=== PATIENT | male | born 1950 | race Caucasian/White ===

== ENCOUNTER 2017-01-26 15:03 | Inpatient (IN) | payer OTHER, MEDICAID ==
--- NOTE | 2017-01-26 15:24 | EDPHY ---
H & P Time Seen by Provider: 01/26/17 15:10 HPI/ROS: CHIEF COMPLAINT: "I am anemic" HISTORY OF PRESENT ILLNESS: Patient is a 66-year-old male with multiple medical problems including GERD who presents to the emergency department with anemia. Patient was sent to the emergency department by his primary care physician, Dr. Tobar. Per the patient he had routine blood work 2 weeks ago. He was found to be significantly anemic and sent to the emergency department. The patient has been feeling fatigued for 1 month. He has mild shortness of breath. He has had increased bilateral pedal edema. He took 240 mg tablets of Lasix yesterday. He has intermittent "chest tightness" but none now. No fevers or chills. No abdominal pain. No nausea or vomiting. No black or discolored stools. REVIEW OF SYSTEMS: My complete review of systems is negative except as mentioned in the HPI. Past Medical/Surgical History: Includes osteoarthritis, scoliosis, hypothyroidism, chronic back pain, hypertension, GERD, coronary artery disease, pulmonary hypertension Social history: Patient does not smoke. He denies alcohol. Family history: Noncontributory Smoking Status: Former smoker Physical Exam: Vitals noted GENERAL: Well-appearing, in no acute distress, alert. HEENT: Eyes normal to inspection, normal pharynx, no signs of dehydration. NECK: No thyromegaly, no lymphadenopathy, supple. RESPIRATORY: Clear to auscultation bilaterally, no rales, rhonchi or wheezing. CVS: Regular rate and rhythm, no rubs, murmurs, or gallops. ABDOMEN: Soft, nontender, nondistended, no organomegaly. BACK: Normal to inspection, no CVA tenderness. SKIN: Pale, no rash, warm, dry bilateral pedal edema. This appear symmetric. Significant erythema both lower extremities. No warmth. NEURO/PSYCH: Alert and oriented, normal mood and affect, normal motor sensory exam. Constitutional: Initial Vital Signs Temperature (C) 36.7 C 01/26/17 15:05 Heart Rate 88 01/26/17 15:05 Respiratory Rate 18 01/26/17 15:05 Blood Pressure 114/81 H 01/26/17 15:05 O2 Sat (%) 93 01/26/17 15:05 O2 Delivery Mode Room Air Allergies/Adverse Reactions: wheat Allergy (Unknown, Verified 06/22/16 07:00) tolmetin sodium [From Tolectin] Allergy (Verified 11/17/13 15:37) Home Medications: Medication Instructions Recorded ALPRAZolam [Xanax 1 MG (*)] 1 mg PO BID PRN 02/18/16 Amphet Asp and D/Amphet [Adderall 10 mg PO DAILY@1200 02/18/16 10 MG (*)] Ascorbic Acid [Vitamin C 250 mg 250 mg PO DAILY 02/18/16 (*)] Aspirin [Aspirin 325 mg (*)] 325 mg PO DAILY18 02/18/16 Bupropion HCl [Wellbutrin Xl] 300 mg PO DAILY 02/18/16 Dextroamphetamine/Amphetamine 30 mg PO DAILY 02/18/16 [Adderall Xr 30 mg Capsule] Esomeprazole Mag Trihydrate 40 mg PO DAILY 02/18/16 [Nexium] Furosemide [Lasix 40 MG (*)] 40 mg PO DAILY PRN 02/18/16 Levothyroxine [Synthroid 112 mcg 112 mcg PO DAILY06 02/18/16 (*)] Liothyronine Sodium [Cytomel 5 mcg 5 mcg PO DAILY06 02/18/16 (*)] Methadone HCl [Methadone HCl 10 mg 20 mg PO DAILY06 02/18/16 (*)] Methadone HCl [Methadone HCl 10 mg 40 mg PO 1199,199902/18/16 (*)] Metoprolol Succinate Xr [Toprol Xl 25 mg PO DAILY18 02/18/16 25 mg (*)] [place]-3 Fatty Acids [Fish Oil 1000 1,000 mg PO DAILY 02/18/16 mg (*)] Potassium Cl [Klor-Con 10 meq (RX)] 10 meq PO DAILY PRN 02/18/16 Vitamin B Complex [B Complex] 1 each PO DAILY 02/18/16 oxyCODONE IR [Oxycodone Ir (*)] 30 mg PO Q4 PRN 02/18/16 Herbals/Supplements -Info Only 1 ea PO DAILY 05/09/16 FLUoxetine [Prozac 20 MG (*)] 40 mg PO DAILY 06/22/16 Pregabalin [Lyrica 50mg (*)] 50 mg PO BID 01/26/17 Medical Decision Making - Diagnostics EKG Interpretation: EKG shows normal sinus rhythm, normal rate, normal axis, prolonged QT interval. There are no ST or T-wave abnormalities. ED Course/Re-evaluation: In the emergency department I discussed possible etiologies with the patient. An IV was placed. Laboratory studies were obtained. I had reviewed the patient 's previous laboratory studies. I attempted to obtain stool Hemoccult. There is no stool in the vault. The cart was not sent. On 01/15/2017 the patient was noted to have a hematocrit of 25. Platelets were elevated. Patient had low iron studies. I discussed these results with the patient. 1625: I discussed case with Dr. Dial. She accepted the patient. GI was paged. Differential Diagnosis: My differential includes but is not limited to upper GI bleed, lower GI bleed, iron deficiency anemia, malignancy, leukemia, cellulitis, DVT, the bacteremia, sepsis - Data Points Laboratory Results: Laboratory Results 01/26/17 15:47 01/26/17 15:47 01/26/17 01/26/17 01/26/17 15:47 15:47 15:47 WBC 3.92 10^3/uL 10^3/uL (3.80-9.50) RBC 4.35 10^6/uL L 10^6/uL (4.40-6.38) Hgb 6.9 g/dL L g/dL (13.7-17.5) Hct 25.7 % L % (40.0-51.0) MCV 59.1 fL L fL (81.5-99.8) MCH 15.9 pg L pg (27.9-34.1) MCHC 26.8 g/dL L g/dL (32.4-36.7) RDW 18.8 % H % (11.5-15.2) Plt Count 491 10^3/uL H 10^3/uL (150-400) MPV 9.4 fL fL (8.7-11.7) Neut % (Auto) 62.9 % % (39.3-74.2) Lymph % (Auto) 24.0 % % (15.0-45.0) [place] % (Auto) 10.5 % % (4.5-13.0) Eos % (Auto) 1.5 % % (0.6-7.6) Baso % (Auto) 0.8 % % (0.3-1.7) Nucleat RBC Rel Count 0.0 % % (0.0-0.2) Absolute Neuts (auto) 2.47 10^3/uL 10^3/uL (1.70-6.50) Absolute Lymphs (auto) 0.94 10^3/uL L 10^3/uL (1.00-3.00) Absolute Monos (auto) 0.41 10^3/uL 10^3/uL (0.30-0.80) Absolute Eos (auto) 0.06 10^3/uL 10^3/uL (0.03-0.40) Absolute Basos (auto) 0.03 10^3/uL 10^3/uL (0.02-0.10) Absolute Nucleated RBC 0.00 10^3/uL 10^3/uL (0-0.01) Immature Gran % 0.3 % % (0.0-1.1) Immature Gran # 0.01 10^3/uL 10^3/uL (0.00-0.10) Platelet Estimate Pending Smear Review By Pending PT INR APTT Sodium 137 mEq/L mEq/L (134-144) Potassium 3.6 mEq/L mEq/L (3.5-5.2) Chloride 95 mEq/L L mEq/L (97-110) Carbon Dioxide 29 mEq/l mEq/l (22-31) Anion Gap 13 mEq/L mEq/L (8-16) BUN 20 mg/dL mg/dL (7-23) Creatinine 1.1 mg/dL mg/dL (0.7-1.3) Estimated GFR > 60 Glucose 90 mg/dL mg/dL (70-100) Calcium 9.0 mg/dL mg/dL (8.5-10.4) Troponin I Pending NT-Pro-B Natriuret Pep Pending Patient ABO/Rh Pending Antibody Screen Pending 01/26/17 15:35 WBC RBC Hgb Hct MCV MCH MCHC RDW Plt Count MPV Neut % (Auto) Lymph % (Auto) [place] % (Auto) Eos % (Auto) Baso % (Auto) Nucleat RBC Rel Count Absolute Neuts (auto) Absolute Lymphs (auto) Absolute Monos (auto) Absolute Eos (auto) Absolute Basos (auto) Absolute Nucleated RBC Immature Gran % Immature Gran # Platelet Estimate Smear Review By PT 13.6 SEC SEC (12.0-15.0) INR 1.05 (0.83-1.16) APTT 22.1 SEC L SEC (23.0-38.0) Sodium Potassium Chloride Carbon Dioxide Anion Gap BUN Creatinine Estimated GFR Glucose Calcium Troponin I NT-Pro-B Natriuret Pep Patient ABO/Rh Antibody Screen Departure - Departure Disposition: [facility] Inpatient Acute Clinical Impression: Possible GI bleed Anemia Qualifiers: Anemia type: iron deficiency Iron deficiency anemia type: unspecified iron deficiency Qualified Code(s): D50.9 - Iron deficiency anemia, unspecified Condition: Good Referrals: CHUN TOBAR [Primary Care Provider] - As per Instructions
[2017-01-26 15:55] LABS: INR 1.05 (0.83-1.16); PROTIME(PATIENT) 13.6 SEC (12.0-15.0)
[2017-01-26 15:56] LABS: APTT 22.1 SEC (23.0-38.0)
--- NOTE | 2017-01-26 15:57 | CPEKG ---
Heart Rate: 85 RR Interval: 706 P-R Interval: 136 QRSD Interval: 108 QT Interval: 448 QTC Interval: 533 P [place]: 57 QRS [place]: 46 T Wave [place]: -1 EKG Severity - ABNORMAL ECG - EKG Impression: SINUS RHYTHM EKG Impression: BORDERLINE INFERIOR Q WAVES EKG Impression: PROLONGED QT INTERVAL Electronically Signed By: Flex Melendez 26-Jan-2017 19:13:21
[2017-01-26 16:08] LABS: % IMMATURE GRANULYOCYTES 0.3 % (0.0-1.1); ABSOLUTE IMMATURE GRANULOCYTES 0.01 10^3/uL (0.00-0.10); ADD DIFF? NO; ADD MORPH? YES; ADD SCAN? NO; ATYPICAL LYMPHOCYTE FLAG 20 (0-99); FRAGMENT RBC FLAG 70 (0-99); HEMATOCRIT 25.7 % (40.0-51.0); LEFT SHIFT FLG 0 (0-99); LIPEMIA HEMOLYSIS FLAG 70 (0-99); MEAN CELL HEMOGLOBIN 15.9 pg (27.9-34.1); MEAN PLATELET VOLUME 9.4 fL (8.7-11.7); PLATELET CLUMPS FLAG 10 (0-99); PLATELET COUNT 491 10^3/uL (150-400); RED BLOOD CELL COUNT 4.35 10^6/uL (4.40-6.38); RED CELL DISTRIBUTION WIDTH 18.8 % (11.5-15.2)
[2017-01-26 16:12] LABS: HEMOGLOBIN 6.9 g/dL (13.7-17.5); MEAN CELL HEMOGLOBIN CONCENTR. 26.8 g/dL (32.4-36.7); MEAN CELL VOLUME 59.1 fL (81.5-99.8)
[2017-01-26 16:21] LABS: ANION GAP 13 mEq/L (8-16); CARBON DIOXIDE 29 mEq/l (22-31); CHLORIDE 95 mEq/L (97-110); CREATININE 1.1 mg/dL (0.7-1.3); GLOMERULAR FILTRATION RATE > 60; GLUCOSE 90 mg/dL (70-100); POTASSIUM 3.6 mEq/L (3.5-5.2); SODIUM 137 mEq/L (134-144)
[2017-01-26 16:34] LABS: GIANT PLATELETS PRESENT; HYPOCHROMIA 3+; LARGE PLATELETS PRESENT; MICROCYTES 2+; PLATELET ESTIMATE ADEQUATE (ADEQ); POLYCHROMASIA 1+; TROPONIN I < 0.012 ng/mL (0-0.034)
[2017-01-26] MEDS ORDERED: ONDANSETRON 4 MG/2 ML VIAL IVP PRN (17:20)
[2017-01-26] MEDS ORDERED: ACETAMINOPHEN 325 MG TAB PO PRN (17:20)
[2017-01-26] MEDS ORDERED: PROMETHAZINE HCL 25 MG/ML INJ IVP PRN (17:20)
[2017-01-26] MEDS ORDERED: GOLYTELY 4000 ML BTL PO ONE (17:22)
--- NOTE | 2017-01-26 17:53 | GHP ---
DATE OF ADMISSION: 01/26/2017 CHIEF COMPLAINT: Anemia HISTORY OF PRESENTING ILLNESS: This is a 66-year-old male with history of anemia who was referred t o the emergency department by his primary care provider for further workup. The patient tells me he has been anemic for approximately the past year. He has had a colonoscopy b ut it has been some time. His last colonoscopy, he tells me, he was found to have polyps. He denie s any melena or hematochezia. He denies any obvious blood loss. He takes ibuprofen occasionally, a bout once a week. He denies any abdominal pain. He does report about 10 pounds of weight loss over the past 3 months and has not been eating much. He denies any changes in his bowel habits. He den ies any fevers or chills. He does have shortness of breath. He denies any chest pain. PAST MEDICAL HISTORY: 1. Diastolic heart failure. 2. Hypothyroidism. 3. Hypertension. 4. Gastroesophageal reflux disease. 5. Pulmonary hypertension. 6. Obstructive sleep apnea. 7. Scoliosis. 8. Osteoarthritis. 9. Chronic opioid use. PAST SURGICAL HISTORY: Right total shoulder arthroplasty, and tonsil and adenoidectomy. HOME MEDICATIONS: Were reviewed, refer to [employer] for details. ALLERGIES: Were reviewed, refer to [employer]. SOCIAL HISTORY: The patient lives independently on [address] with a friend. He denies any to bacco use. He drinks alcohol occasionally. FAMILY HISTORY: Significant for what he thinks is colon cancer in his grandmother. REVIEW OF SYSTEMS: Comprehensive 10-point review of systems was done and is negative except for as mentioned in the HPI. PHYSICAL EXAM: VITAL SIGNS: Blood pressure 121/63, pulse of 80, respiratory rate 18, O2 sat 100% o n 2 L. Temperature afebrile. GENERAL: No acute distress. HEENT: Head: Normocephalic, atraumati c. Eyes are PERRLA. Sclerae anicteric. Mouth: Moist mucous membranes. Pale conjunctiva. CARDIO VASCULAR: S1, S2 with what sounds like a flow murmur. There is JVD. There is bilateral lower extr emity pitting edema. PULMONARY: Lungs are clear. No wheezes, rales, or rhonchi. Normal respirato ry effort. No dullness to percussion. ABDOMEN: Soft, nondistended. No guarding or rebound tender ness. Normoactive bowel sounds. EXTREMITIES: No clubbing or cyanosis. NEURO: Cranial nerves 2-1 2 grossly intact. No focal motor or sensory deficits. SKIN: There is mild bilateral erythema of b ilateral lower extremities. His complexion is very pale. DIAGNOSTICS: WBC is 3.9, hemoglobin 6.9, hematocrit 25.7, platelets 491, MCV 59.1. Coags were unre markable. Sodium 137, potassium 3.6, chloride 95, BUN 20, creatinine 1.1, glucose 90. BNP mildly e levated at 492. Troponins less than 0.012. EKG, which I visualized and personally interpreted, thomas ws sinus rhythm, rate 85 beats per minute, with no acute ischemic changes. ASSESSMENT AND PLAN: This is a 66-year-old male presenting with: 1. Symptomatic severe microcytic anemia of unclear etiology. Suspect GI blood loss and possible ma lignancy in the setting of weight loss and poor appetite. a. Plan: The patient will be admitted to the medical-surgical floor where I will order a unit of p acked red blood cells to be transfused. b. GI will be consulted for further inpatient workup. 2. Suspected acute on chronic diastolic heart failure with severe lower extremity swelling. a. Plan: We will obtain echocardiogram and consider diuresis. 3. History of chronic pain. a. Plan: Continue home pain medications. Once again, we will monitor his H and H. We will also send iron studies and consider hematology jena luation pending GI workup. /[id number]/MODL
[2017-01-26 18:17] LABS: % SATURATION 3 % (20-55); TOTAL IRON BINDING CAPACITY 444 ug/dL (260-490)
[2017-01-26] MEDS ORDERED: POTASSIUM CL 10 MEQ TAB PO PRN (18:39)
[2017-01-26] MEDS ORDERED: ALPRAZolam 1 MG TAB PO PRN (18:39)
[2017-01-26 18:42] LABS: FERRITIN - BCH 8.8 ng/mL (17.9-464.0)
[2017-01-26] MEDS: PREGABALIN 75 MG CAP PO SCH (21:18)
[2017-01-26] MEDS: FUROSEMIDE 40 MG TAB PO SCH (21:18)
[2017-01-27] MEDS ORDERED: LEVOTHYROXINE 112 MCG TAB PO SCH (06:00)
[2017-01-27] MEDS ORDERED: LIOTHYRONINE SODIUM 5 MCG TAB PO SCH (06:00)
[2017-01-27 07:22] LABS: % IMMATURE GRANULYOCYTES 0.3 % (0.0-1.1); ABSOLUTE IMMATURE GRANULOCYTES 0.01 10^3/uL (0.00-0.10); ADD DIFF? NO; ADD MORPH? YES; ADD SCAN? NO; ATYPICAL LYMPHOCYTE FLAG 10 (0-99); FRAGMENT RBC FLAG 80 (0-99); HEMATOCRIT 25.3 % (40.0-51.0); LEFT SHIFT FLG 0 (0-99); LIPEMIA HEMOLYSIS FLAG 70 (0-99); MEAN CELL HEMOGLOBIN 17.2 pg (27.9-34.1); MEAN PLATELET VOLUME 9.6 fL (8.7-11.7); PLATELET CLUMPS FLAG 0 (0-99); PLATELET COUNT 389 10^3/uL (150-400); RED BLOOD CELL COUNT 4.06 10^6/uL (4.40-6.38)
[2017-01-27 07:29] LABS: ANION GAP 8 mEq/L (8-16); CALCIUM 8.5 mg/dL (8.5-10.4); CARBON DIOXIDE 31 mEq/l (22-31); CHLORIDE 97 mEq/L (97-110); CREATININE 0.9 mg/dL (0.7-1.3); GLOMERULAR FILTRATION RATE > 60; GLUCOSE 76 mg/dL (70-100); POTASSIUM 3.7 mEq/L (3.5-5.2); SODIUM 136 mEq/L (134-144)
[2017-01-27 07:32] LABS: MEAN CELL HEMOGLOBIN CONCENTR. 27.7 g/dL (32.4-36.7); MEAN CELL VOLUME 62.3 fL (81.5-99.8); RED CELL DISTRIBUTION WIDTH 21.4 % (11.5-15.2)
[2017-01-27 08:09] LABS: HYPOCHROMIA 3+; LARGE PLATELETS PRESENT; MICROCYTES 2+; PLATELET ESTIMATE ADEQUATE (ADEQ); POLYCHROMASIA 1+
[2017-01-27] MEDS ORDERED: METHADONE HCL 10 MG TAB PO SCH (09:00)
[2017-01-27] MEDS ORDERED: ASCORBIC ACID 500 MG TAB PO SCH (09:00)
[2017-01-27] MEDS ORDERED: FLUoxetine 20 MG CAP PO SCH (09:00)
[2017-01-27] MEDS ORDERED: buPROPion XL 150 MG TAB PO SCH (09:00)
[2017-01-27] MEDS ORDERED: Dextroamphetamine/Amphetamine [Adderall Xr 30 Mg Capsule] PO SCH (09:00)
[2017-01-27] MEDS ORDERED: Herbals/Supplements -Info Only PO SCH (09:00)
[2017-01-27] MEDS: FUROSEMIDE 40 MG TAB PO SCH (09:24)
[2017-01-27] MEDS: PREGABALIN 75 MG CAP PO SCH (09:24)
[2017-01-27] MEDS ORDERED: ADDERALL 20 MG TAB PO SCH (12:00)
[2017-01-27] MEDS: METHADONE HCL 10 MG TAB PO SCH ×2 (12:07→15:49)
--- NOTE | 2017-01-27 12:17 | ECHO ---
[id number] + + [phone] : : [place] [address] : : [phone] + + Adult Echocardiographic Report + ------+ :Name: KOURTNEY GUERRA TStudy Date: 01/27/2017 07:42 AM : : Hospital Admission Number: [id number] Locatio n: 379: :: 1950 Gender: Male Height: 63 in : :Age: 66 yrs Race: WH Weight: 145 lb : :Reason For Study: Heart failure : : BSA: 1.7 meters 2 : + ------+ MMode/2D Measurements \T\ Calculations IVSd: 0.67 cm LVIDd: 5.5 cm FS: 38.8 % MV Diam: 3.2 cm LVPWd: 0.79 cm LVIDs: 3.4 cm EDV(Teich): 147.6 ml ESV(Teich): 46.3 ml EF(Teich): 68.6 % Ao root diam: LVOT diam: 2.4 cmLVLd ap4: 9.1 cm SV(MOD-sp4): 3.5 cm LVOT area: EDV(MOD-sp4): 87.0 ml LA dimension: 4.5 cm2 112.0 ml 4.1 cm LVLs ap4: 6.7 cm ESV(MOD-sp4): 25.0 ml EF(MOD-sp4): 77.7 % Normal Measurement Values: + + :LVIDd (3.5-5.7cm) IVSd (0.6-1.1cm) LVPWd (0.6-1.1cm) Aortic Root (2.0-3.7cm)Left Atrium (1.5-4.0cm): :LV Vol(d) (76-115ml) LV Vol(s) (29-48ml) Ejec Fraction (50-65%)PV Lane (0.6- 1.2m/s) TV Lane (0.4-1.0m/s) : :MV E Lane (0.8-1.0m/s)MV A Lane (0.3-1.0m/s)LVOT Lane (0.7-1.2m/s) Asc Ao Lane ( 0.9-1.8m/s) : + + Doppler Measurements \T\ Calculations MV E max lane: MV area (1 diam): Ao mean PG: AI max lane: 83.9 cm/sec 7.8 cm2 5.7 mmHg 483.2 cm/sec MV A max lane: MV Flow area Ao V2 mean: AI max P.4 mmHg 84.4 cm/sec 111.5 cm/sec AI dec slope: MV E/A: 0.99 (1diam): 7.8 cm2 Ao V2 VTI: 38.5 cm 309.5 cm/sec2 RICCO(I,D): 3.1 cm2 AI P1/2t: 457.3 msec LV V1 mean PG: SV(LVOT): 118.[address]: 2.6 mmHg 240.3 cm/sec LV V1 mean: TR max P.5 cm/sec 23.1 mmHg LV V1 VTI: 26.2 cm RAP systole: 5.0 mmHg RVSP(TR): 28.1 mmHg Left Ventricle The left ventricle is borderline dilated. There is normal left ventricular wall thickness. Left ventricular systolic function is normal. Ejection Fraction = 65-70%. No regional wall motion abnormalities noted. Right Ventricle The right ventricle is normal in size and function. Atria The left atrium is moderately dilated. Right atrial size is normal. The interatrial septum is intact with no evidence for an atrial septal defect. Mitral Valve The mitral valve is normal in structure and function. There is no evidence of mitral valve prolapse. There is no mitral valve stenosis. There is mild mitral regurgitation. Tricuspid Valve Normal tricuspid valve. There is mild tricuspid regurgitation. Aortic Valve Question bicuspid AV with raphe. There is no aortic stenosis. Moderate aortic regurgitation. Pulmonic Valve The pulmonic valve is normal in structure and function. There is no pulmonic valvular regurgitation. Great Vessels The aortic root is normal size. Pericardium/Pleural There is no pericardial effusion. Conclusion A complete two-dimensional transthoracic echocardiogram was performed (2D, M-mode, Doppler and color flow Doppler). Left ventricular systolic function is normal. Ejection Fraction = 65-70%. The left ventricle is borderline dilated. The left atrium is moderately dilated. There is mild mitral regurgitation. There is mild tricuspid regurgitation. Question bicuspid AV with raphe. Moderate aortic regurgitation. Final Reading Physician: Isatu Silva signed on 01/27/2017 12:15 PM Ordering Physician: Lex Feliz Performed By: Edna Kathleen RDCS
[2017-01-27 12:19] VITALS: RESP 16
[2017-01-27] MEDS ORDERED: fentaNYL 100 MCG/2 ML INJ ONE (13:25)
[2017-01-27] MEDS ORDERED: PROPOFOL/EMULSION 500 MG/50 ML BOTTLE IV ONE (13:26)
--- NOTE | 2017-01-27 14:55 | GCON ---
DATE OF CONSULTATION: 01/27/2017 REQUESTING PHYSICIAN: I was kindly requested to see the patient by Dr. Lex Feliz. CHIEF COMPLAINT: Anemia. HISTORY OF PRESENT ILLNESS: The patient is a 66-year-old white male who has had the above for about 1 year. On admission, his hemoglobin was 6.8. He complains of heartburn. He denies dysphagia. He has had trouble with heartburn dating back at least 2 years. For a period, he was vomiting blood for several months. The above was despite Nexium. Presently, he is not using a proton pump inhibitor. He does use aspirin or ibuprofen as needed. His last upper endoscopy was in 2008, where some subtle changes of esophagitis were seen and a small hiatal hernia. Colonoscopy then showed a 6 mm tubular adenoma in the colon. Normal terminal ilium. PAST MEDICAL HISTORY: 1. As above. 2. Diastolic heart failure. 3. Hypothyroidism. 4. Hypertension. 5. Pulmonary hypertension. 6. Obstructive sleep apnea. 7. Scoliosis. 8. Osteoarthritis. 9. Chronic opioid use. Otherwise, noncontributory. ALLERGIES: Include Tolmetin. MEDICATIONS: Outpatient medications include potassium chloride. Inpatient medications include Lyrica, potassium chloride, Xanax, Adderall, vitamin C, Wellbutrin, Prozac, Lasix, methadone, Cytomel, Synthroid, and Zofran as needed. SOCIAL HISTORY: He denies cigarette use. FAMILY HISTORY: Negative for similar anemia. REVIEW OF SYSTEMS: Positive pertinent review of systems as per my HPI. Otherwise, a complete review of systems is negative. PHYSICAL EXAM: CONSTITUTIONAL: A chronically ill-appearing gentleman. SKIN: Warm, dry. EYES: Pupils equal, round, reactive to light and accommodation. ENMT: oropharynx without masses, moist mucosa. CARDIOVASCULAR: Normal S2, normal PMI. RESPIRATORY: Clear to auscultation and percussion anteriorly. GASTROINTESTINAL: Abdomen is soft, nontender. NEUROLOGIC: Grossly nonfocal, with cranial nerves grossly intact. PSYCHIATRIC: Orientation, insight appropriate. MUSCULOSKELETAL: Strength is grossly normal throughout, normal station. LABORATORIES: Include the above. After a unit of blood, his hemoglobin is 7. Normal coags. Iron deficient. Normal TSH. Normal electrolytes. ASSESSMENT: Anemia. This could be due to significant reflux esophagitis, esophageal ulcer, or even esophageal cancer is possible. A colon source such as colon cancer is possible. PLAN: 1. Urgent upper endoscopy, colonoscopy. Certainly, with his heart failure, thyroid disorder, hypertension, pulmonary hypertension, sleep apnea, opioid use , etc., he is at increased risk for this procedure. However, suspect that benefits outweigh the risks and suspect he will do well. 2. Further management depending on the above. Thank you for allowing me to help in the care of this patient. /[id number]/MODL MTDD
--- NOTE | 2017-01-27 15:05 | GPN ---
DATE OF PROCEDURE: 01/27/2017 PROCEDURES: Upper endoscopy with biopsy, colonoscopy. INDICATIONS AND PRE-PROCEDURE DIAGNOSIS: Anemia. POSTPROCEDURE DIAGNOSIS: A. Upper endoscopy. 1. Moderately severe reflux esophagitis (see below). 2. Normal stomach, duodenum. No active bleeding seen. B. Colonoscopy. Normal, normal terminal ilium. PREMEDICATION: As per Anesthesia. COMPLICATIONS: None. FINDINGS: After informed consent was obtained, the patient was placed in the left lateral decubitus position. Video upper endoscope was placed under direct visualization and advanced. The distal esophagus had moderately severe exudative esophagitis. No active bleeding seen. No stricture, mass, deep ulceration seen. Stomach was normal. Duodenum normal. The patient's gurney was turned around. Video pediatric colonoscope was placed in the rectum and advanced to the terminal ileum. Upon slow withdrawal, the above findings were noted. IMPRESSION: I suspect his anemia is due to his moderately severe reflux esophagitis. PLAN: 1. We will begin a proton pump inhibitor twice a day. 2. We will let him eat. 3. To be safe, we will change his potassium chloride to 10 mEq twice a day as needed in liquid form. 4. Biopsies pending. Biopsies were also sent for HSV, CMV, etc., but suspect will be negative. I will sign off. I will follow up on his biopsy results, but suspect will show just reflux esophagitis only. Even if any Mcgovern is present, with his poor health status, would not recommend future surveillance upper endoscopies routinely. Finally, upon discharge, would recommend a generic PPI twice a day custodial, as well as iron replacement therapy x 8 weeks. F/U PCP. Thank you for allowing me to help in the care of this patient. Please let me know if we can be of further help in the future. /[id number]/MODL MTDD
[2017-01-27] MEDS ORDERED: SODIUM FERRIC GLUCONAT/SUCROSE 125 MG in NS 100 ML IV SCH (16:30)
[2017-01-27 16:51] VITALS: BP 130/80; PULSE 86; TEMP 98.1; O2SAT 98
--- NOTE | 2017-01-27 17:40 | PDDCSUM ---
Discharge Summary Discharge Summary: DISCHARGE DIAGNOSES: -IRON DEFICIENCY ANEMIA -SEVERE EROSIVE ESOPHAGITIS CONSULTANTS: Dr. Nestor Burk PROCEDURES: Esophagogastroduodenoscopy showing severe erosive esophagitis with evidence of bleeding recently Colonoscopy with no specific abnormalities Transfusion of 1 unit of packed red blood cells HOSPITAL COURSE SUMMARY: This patient came in with significant symptoms suggesting anemia on blood testing was found to have hemoglobin of 6.7. There was evidence of iron deficiency which was profound and he had heme-positive stool. Endoscopies showed severe erosive esophagitis but no other lesion that would cause bleeding. It is felt that this was likely cause of his iron deficiency anemia. The patient was given 1 unit of red blood cells which she tolerated well. He was given iron supplementation and proton pump inhibitor therapy and IV fluids. At this time he is eating well up walking in the hallways. There been no cardiac or other complications here. PENDING TEST RESULTS: Small bowel biopsies pending MEDICATION CHANGES: Addition of a Nexium 40 mg twice daily and iron supplements FOLLOW-UP PLAN: With Dr. shipman in 1-2 weeks Follow-up CBC and iron studies recommended Greater than 35 minutes bedside and care coordination time today
[2017-01-27] MEDS ORDERED: PANTOPRAZOLE SODIUM 40 MG TAB PO SCH (21:00)
== END 2017-01-27 18:36 | disposition home or self-care (01) | DRG 392 ==
LOC: OBSVTOIN 17:20 → F3E 17:24
PROVIDERS: ADMIT Internal Medicine; ATTEND Internal Medicine
DX: K21.0 Gastro-esophageal reflux disease with esophagitis (principal); K22.8 Other specified diseases of esophagus; D50.0 Iron deficiency anemia secondary to blood loss (chronic); I11.0 Hypertensive heart disease with heart failure; I50.32 Chronic diastolic (congestive) heart failure; E03.9 Hypothyroidism, unspecified; G47.33 Obstructive sleep apnea (adult) (pediatric); I27.2 Other secondary pulmonary hypertension; M19.91 Primary osteoarthritis, unspecified site; M41.9 Scoliosis, unspecified; Z79.891 Long term (current) use of opiate analgesic; Z96.611 Presence of right artificial shoulder joint
CPT/HCPCS: J2704; J2916; J3010; P9016

== ENCOUNTER 2018-10-15 15:15 | Observation (INO) | payer OTHER, MEDICAID ==
--- NOTE | 2018-10-15 15:54 | EDPHY ---
H & P Stated Complaint: wke up covered in blood from mouth /has had ruptured hiatal hernia in past Time Seen by Provider: 10/15/18 15:54 - Personal History Current Tetanus Diphtheria and Acellular Pertussis (TDAP): Yes - Medical/Surgical History Hx Asthma: No Hx Chronic Respiratory Disease: No Hx Diabetes: No Hx Cardiac Disease: No Hx Renal Disease: No Hx Cirrhosis: No Hx Alcoholism: No Hx HIV/AIDS: No Hx Splenectomy or Spleen Trauma: No Other PMH: arthritis, depression, scoliosis, pulm hypertension, non- flow limiting mild CAD, Hx hep c (- last 5-6 years after interferon), reflux, hiatal hernia, sleep apnea, COPD, SHOULDER REPLACEMENT (MAY 2016) - Social History Smoking Status: Former smoker Constitutional: Initial Vital Signs Temperature (C) 36.5 C 10/15/18 15:20 Heart Rate 92 10/15/18 15:20 Respiratory Rate 18 10/15/18 15:20 Blood Pressure 152/89 H 10/15/18 15:20 O2 Sat (%) 90 L 10/15/18 15:20 O2 Delivery Mode Room Air Allergies/Adverse Reactions: tolmetin sodium [From Tolectin] Allergy (Verified 10/15/18 15:18) Home Medications: Medication Instructions Recorded ALPRAZolam [Xanax 1 MG (*)] 1 mg PO TID PRN 02/18/16 Ascorbic Acid [Vitamin C 250 mg 250 mg PO DAILY 02/18/16 (*)] Bupropion HCl [Wellbutrin Xl] 300 mg PO DAILY 02/18/16 Dextroamphetamine/Amphetamine 30 mg PO DAILY 02/18/16 [Adderall Xr 30 mg Capsule] Levothyroxine [Synthroid 112 mcg 112 mcg PO DAILY06 02/18/16 (*)] Liothyronine Sodium [Cytomel 5 mcg 5 mcg PO DAILY06 02/18/16 (*)] Methadone HCl [Methadone HCl 10 mg 20 mg PO DAILY 02/18/16 (*)] Methadone HCl [Methadone HCl 10 mg 40 mg PO DAILY@,16 02/18/16 (*)] Potassium Cl [Klor-Con 10 meq (RX)] 10 meq PO BID PRN 02/18/16 oxyCODONE IR [Oxycodone Ir (*)] 30 mg PO Q4 PRN 02/18/16 Herbals/Supplements -Info Only 1 ea PO DAILY 05/09/16 FLUoxetine [Prozac 20 MG (*)] 40 mg PO DAILY 06/22/16 Amphet Asp and D/Amphet [Adderall 20 mg PO DAILY@12 01/26/17 20 mg (*)] Furosemide [Lasix 80 MG (*)] 80 mg PO BID 01/26/17 Ferrous Gluconate 324 mg PO DAILY #60 tablet 01/27/17 Omeprazole 20 mg PO BID #60 capsule. 01/27/17 Medical Decision Making ED Course/Re-evaluation: CHIEF COMPLAINT: "Woke up covered in blood" HISTORY OF PRESENT ILLNESS: The patient is a 68 y/o male with a history of an upper GI bleed requiring transfusion arriving with his friend for evaluation of bleeding from his nose and mouth upon waking this morning. He describes bright red blood all over his face and body that he believes is coming from his stomach and occurred while he was asleep. He reports he is taking more aspirin than normal up to 2-3 tablets per day due to musculoskeletal soreness. He denies ibuprofen use. He is taking omeprazole daily and recently increased this dose to twice daily after a brief reduction in dose led to worsening of his GERD symptoms. He denies abdominal pain, dark stools, fever, vomiting, or other complaints. REVIEW OF SYSTEMS: A comprehensive 10 system review of systems is otherwise negative aside from elements mentioned in the history of present illness and medical decision making. PHYSICAL EXAM: HR, BP, O2 Sat, RR. Temp noted General Appearance: Alert, well hydrated, appropriate, and non-toxic appearing. Pale. Head: Atraumatic without scalp tenderness or obvious injury Eyes: Pupils equal, round, reactive to light and accommodation, EOMI, no trauma , no injection. Nose: Atraumatic, no rhinorrhea, clear. Throat: Mucus membranes moist. Neck: Supple, nontender, no lymphadenopathy. Respiratory: No retractions, no distress, no wheezes, and no accessory muscle use. Lungs are clear to auscultation bilaterally. Cardiovascular: Regular rate and rhythm, no murmurs, rubs, or gallops. Good capillary refill all extremities. Gastrointestinal: Abdomen is soft, nontender, non-distended, no masses, no rebound, no guarding, no peritoneal signs. Musculoskeletal: Normal active ROM of all extremities, atraumatic. Neurological: Alert, appropriate, and interactive. The patient has non-focal cranial nerves, motor, sensory, and cerebellar exam. Skin: No rashes, good turgor, no nodules on palpation. Past medical history: Hiatal hernia, upper GI bleed requiring transfusion, diastolic heart failure, hypothyroidism, hypertension, GERD, pulmonary hypertension, sleep apnea, scoliosis, osteoarthritis, chronic opioid use Past surgical history: Right shoulder arthroplasty, tonsillectomy, adenoidectomy Family history: Noncontributory Social history: Lives independently with a friend. Denies tobacco use. Prior medical records reviewed including admission 01/26/17 for anemia. DIFFERENTIAL DIAGNOSIS: The differential diagnosis for the patient's upper GI bleeding included but was not limited to ulcer disease, gastritis, Rowena- Shafer tear, and esophageal varices. MEDICAL DECISION MAKING: This is a 68 y/o male with a history of upper GI bleed who presents with bright red blood coming from his nose and mouth upon waking this morning. He is somewhat pale, but otherwise has a normal exam. Suspect another upper GI bleed. Plan for IV, labs including type & cross, and treatment with 2gm IV TXA, 80mg IV Protonix. Hct 39. Will hold transfusion for now. 1640: Consulted with REI Miles. He will scope during admission. Spoke with hospitalist service. Dr. Hunter accepts admission. - Data Points Laboratory Results: Laboratory Results 10/15/18 16:24 10/15/18 10/15/18 10/15/18 16:30 16:24 16:24 WBC RBC Hgb POC Hgb 13.9 gm/dL gm/dL (13.7-17.5) Hct POC Hct 41 % % (40-51) MCV MCH MCHC RDW Plt Count MPV Neut % (Auto) Lymph % (Auto) [place] % (Auto) Eos % (Auto) Baso % (Auto) Nucleat RBC Rel Count Absolute Neuts (auto) Absolute Lymphs (auto) Absolute Monos (auto) Absolute Eos (auto) Absolute Basos (auto) Absolute Nucleated RBC Immature Gran % Immature Gran # PT INR APTT POC Sodium 136 mEq/L mEq/L (135-145) Sodium Pending POC Potassium 3.8 mEq/L mEq/L (3.3-5.0) Potassium Pending POC Chloride 95 mEq/L L mEq/L (97-110) Chloride Pending Carbon Dioxide Pending Anion Gap Pending POC BUN 26 mg/dL H mg/dL (7-23) BUN Pending Creatinine Pending POC Creatinine 1.0 mg/dL mg/dL (0.7-1.3) Estimated GFR Pending Glucose Pending POC Glucose 106 mg/dL H mg/dL (70-100) Calcium Pending Total Bilirubin Pending Conjugated Bilirubin Pending Unconjugated Bilirubin Pending AST Pending ALT Pending Alkaline Phosphatase Pending Total Protein Pending Albumin Pending Lipase Pending Patient ABO/Rh Pending Antibody Screen Pending Crossmatch IS Only See Detail 10/15/18 10/15/18 16:24 16:24 WBC 5.47 10^3/uL 10^3/uL (3.80-9.50) RBC 4.77 10^6/uL 10^6/uL (4.40-6.38) Hgb 12.4 g/dL L g/dL (13.7-17.5) POC Hgb Hct 39.6 % L % (40.0-51.0) POC Hct MCV 83.0 fL fL (81.5-99.8) MCH 26.0 pg L pg (27.9-34.1) MCHC 31.3 g/dL L g/dL (32.4-36.7) RDW 14.8 % % (11.5-15.2) Plt Count 267 10^3/uL 10^3/uL (150-400) MPV 9.2 fL fL (8.7-11.7) Neut % (Auto) 52.5 % % (39.3-74.2) Lymph % (Auto) 28.3 % % (15.0-45.0) [place]illi[place] % (Auto) 9.7 % % (4.5-13.0) Eos % (Auto) 8.0 % H % (0.6-7.6) Baso % (Auto) 1.1 % % (0.3-1.7) Nucleat RBC Rel Count 0.0 % % (0.0-0.2) Absolute Neuts (auto) 2.87 10^3/uL 10^3/uL (1.70-6.50) Absolute Lymphs (auto) 1.55 10^3/uL 10^3/uL (1.00-3.00) Absolute Monos (auto) 0.53 10^3/uL 10^3/uL (0.30-0.80) Absolute Eos (auto) 0.44 10^3/uL H 10^3/uL (0.03-0.40) Absolute Basos (auto) 0.06 10^3/uL 10^3/uL (0.02-0.10) Absolute Nucleated RBC 0.00 10^3/uL 10^3/uL (0-0.01) Immature Gran % 0.4 % % (0.0-1.1) Immature Gran # 0.02 10^3/uL 10^3/uL (0.00-0.10) PT 13.5 SEC SEC (12.0-15.0) INR 1.01 (0.83-1.16) APTT 30.2 SEC SEC (23.0-38.0) POC Sodium Sodium POC Potassium Potassium POC Chloride Chloride Carbon Dioxide Anion Gap POC BUN BUN Creatinine POC Creatinine Estimated GFR Glucose POC Glucose Calcium Total Bilirubin Conjugated Bilirubin Unconjugated Bilirubin AST ALT Alkaline Phosphatase Total Protein Albumin Lipase Patient ABO/Rh Antibody Screen Crossmatch IS Only Medications Given: Discontinued Medications Sodium Chloride (Ns) 1,000 mls @ 0 mls/hr IV EDNOW ONE; Wide Open PRN Reason: Protocol Stop: 10/15/18 16:00 Last Admin: 10/15/18 16:24 Dose: 1,000 mls Tranexamic Acid 1,000 mg/ (Sodium Chloride) 110 mls @ 660 mls/hr IV ONCE ONE Stop: 10/15/18 16:10 Last Admin: 10/15/18 16:27 Dose: 110 mls Pantoprazole Sodium (Protonix) 80 mg IVP EDNOW ONE Stop: 10/15/18 16:00 Last Admin: 10/15/18 16:24 Dose: 80 mg Point of Care Test Results: Chemistry 10/15/18 16:30 POC Sodium 136 mEq/L mEq/L (135-145) POC Potassium 3.8 mEq/L mEq/L (3.3-5.0) POC Chloride 95 mEq/L L mEq/L (97-110) POC BUN 26 mg/dL H mg/dL (7-23) POC Creatinine 1.0 mg/dL mg/dL (0.7-1.3) POC Glucose 106 mg/dL H mg/dL (70-100) ISTAT H&H 10/15/18 16:30 POC Hgb 13.9 gm/dL gm/dL (13.7-17.5) POC Hct 41 % % (40-51) Departure - Departure Disposition: [facility] Inpatient Acute Clinical Impression: Upper GI bleed Condition: Fair Referrals: CHUN JOSHI [Primary Care Provider] - As per Instructions Report Scribed for: Flex Melendez Report Scribed by: Sahara Hart Date of Report: 10/15/18 Time of Report: 16:05
[2018-10-15] MEDS ORDERED: PANTOPRAZOLE SODIUM 40 MG VIAL IVP ONE (15:59)
[2018-10-15] MEDS ORDERED: NS 1,000 ML IV ONE (15:59)
[2018-10-15] MEDS ORDERED: TRANEXAMIC ACID 1,000 MG in NS 500 ML IV ONE (16:01)
[2018-10-15] MEDS ORDERED: TRANEXAMIC ACID 1,000 MG in NS 100 ML IV ONE (16:01)
[2018-10-15 16:33] LABS: PLATELET COUNT 267 10^3/uL (150-400)
[2018-10-15 16:41] LABS: INR 1.01 (0.83-1.16); PROTIME(PATIENT) 13.5 SEC (12.0-15.0)
[2018-10-15] MEDS ORDERED: ACETAMINOPHEN 325 MG TAB PO PRN (16:59)
[2018-10-15] MEDS ORDERED: ONDANSETRON DISINTEGRATING 4 MG TAB PO PRN (16:59)
[2018-10-15] MEDS ORDERED: ONDANSETRON 4 MG/2 ML VIAL IVP PRN (16:59)
[2018-10-15] MEDS ORDERED: HYDROmorphONE/DILAUDID 1 MG/ML INJ IVP PRN (16:59)
[2018-10-15] MEDS ORDERED: NS 1,000 ML IV SCH (17:00)
--- NOTE | 2018-10-15 18:02 | PDGENHP ---
History and Physical - Chief Complaint Suspected upper GI bleed - History of Present Illness 68 y/o with history of hiatal hernia and UGIB requiring transfusions in the past presents today c/o waking up and his face being covered in blood which he suspects is coming from his stomach/esophagus region. He admits to taking more ASA (325 mg x 3 tablets) than usual for his muscle aches. No other additional OTC NSAIDs. C/o epigastric pain and tenderness. One month prior, pt had a dilation procedure for his esophageal stricture to allow him to swallow with ease as he was having difficulty swallowing solid foods. Since then, he c/o of mild difficulty swallowing. He endorses "darker" stools but not black tarry. Denies hematemesis, hematuria, hemoptysis. Denies N/V, diarrhea, dizziness. Past Medical/Surgical History 1. Hiatal Hernia 2. Diastolic heart failure 3. GERD 4. Hypothyroidism 5. HTN 6. Pulmonary HTN 7. ILANA (wears oxygen HS, but not CPAP) 8. Scoliosis 9. OA 10. Chronic Opioid Use 11. Depression 12. Hepatitis C 13. Adenoidectomy 14. Tonsillectomy 15. Right Shoulder Arthroplasty Vital Signs 130/82 84 16 Respirations 94% RA 36.5c History Information - Allergies/Home Medication List Allergies/Adverse Reactions: gluten Allergy (Verified 10/15/18 17:44) Other-Enter Comments tolmetin sodium [From Tolectin] Allergy (Verified 10/15/18 17:44) Other-Enter Comments Home Medications: Ascorbic Acid [Vitamin C 250 mg (*)] 250 mg PO DAILY 02/18/16 [Last Taken ] Dextroamphetamine/Amphetamine [Adderall Xr 30 mg Capsule] 30 mg PO DAILY [Last Taken 10/15/18] Methadone HCl [Methadone HCl 10 mg (*)] 20 mg PO DAILY 02/18/16 [Last Taken ] Potassium Cl [Klor-Con 10 meq (RX)] 10 meq PO DAILY PRN 02/18/16 [Last Taken ] oxyCODONE IR [Oxycodone Ir (*)] 30 mg PO Q4 PRN 02/18/16 [Last Taken 10/15/18 AM ] Amphet Asp and D/Amphet [Adderall 20 mg (*)] 20 mg PO DAILY@12 03/03/17 [Last Taken 10/15/18] Furosemide [Lasix 80 MG (*)] 40 mg PO BID PRN 01/26/17 [Last Taken 10/08/18] ALPRAZolam [Xanax 0.5 MG (*)] 0.5 - 1 mg PO TID PRN 10/15/18 [Last Taken AM] Aspirin [Aspirin 325 mg (*)] 975 mg PO Q3D 10/15/18 [Last Taken Unknown] HYDROmorphone HCL [Dilaudid 4 mg (*)] 4 mg PO TID PRN 10/15/18 [Last Taken 10/15 AM] Mbx Soln;Maalox/Diphen/Lido [Maalox/Diphenhydramine/Lido] 60 ml PO PRN PRN 10/15 [Last Taken Unknown] Omeprazole 40 mg PO BID 10/15/18 [Last Taken 10/15/18 AM] diphenhydrAMINE HCL [Sleep-Aid] 25 mg PO HS PRN 10/15/18 [Last Taken Unknown] I have personally reviewed and updated: family history, medical history, social history, surgical history Past Medical History: See HPI List - Surgical History Additional surgical history: See HPI List - Social History Smoking Status: Current some day smoker (Vape tobacco) Alcohol Use: Occasionally (2 drinks/day) Drug Use: Marijuana Additional social history: Lives with roommate who was at bedside Review of Systems Review of Systems: ROS: 10pt was reviewed & negative except for what was stated in HPI & below Constitutional: Reports: weakness, weight loss EENMT: Reports: other (Mild difficulty swallowing; feels like indigestion) Cardiac: Reports: edema (BLE) Gastrointestinal: Reports: nausea Genitourinary: Reports: frequency Muscolosketal: Reports: other (Chronic pain "everywhere") Skin: Reports: dryness (BLE) Neurological: Reports: depressed Hematologic/Lymphatic: Reports: no symptoms Immunologic/Allergy: Reports: other (See allergy list) Physical Exam Physical Exam: Lab data reviewed Temp Pulse Resp BP Pulse Ox 36.5 C 84 16 130/82 H 94 10/15/18 15:20 10/15/18 17:42 10/15/18 17:42 10/15/18 17:42 10/15/18 17:42 Constitutional: no apparent distress, appears nourished, not in pain, other ( Pale-appearing, pleasant, cooperative.) Eyes: PERRL, anicteric sclera, EOMI Ears, Nose, Mouth, Throat: moist mucous membranes, hearing normal, ears appear normal, no oral mucosal ulcers Cardiovascular: regular rate and rhythym, no murmur, rub, or gallop, edema Peripheral Pulses: 2+: dorsalis-pedis (R) (Non-pitting edema; Radial 2+), dorsalis-pedis (L) (Non-pitting edema; Radial 2+) Respiratory: no respiratory distress, no rales or rhonchi, clear to auscultation Gastrointestinal: normoactive bowel sounds, no palpable masses, tenderness ( Mild tenderness) Genitourinary: no bladder fullness, no bladder tenderness Skin: warm, normal color, no fluctuance, no induration, rash (Acute statis dermatitis BLE), No mottled Musculoskeletal: full muscle strength, no muscle tenderness, normal joint ROM, no joint effusions Neurologic: AAOx3, sensation intact bilaterally, CN II-XII Intact Psychiatric: interacting appropriately, not anxious, not encephalopathic, thought process linear Lymph, Heme, Immunologic: no cervical LAD, no supraclavicular LAD Lab Data & Imaging Review 10/15/18 16:24 10/15/18 16:24 WBC 5.47 10^3/uL (3.80-9.50) 10/15/18 16:24 RBC 4.77 10^6/uL (4.40-6.38) 10/15/18 16:24 Hgb 12.4 g/dL (13.7-17.5) L 10/15/18 16:24 POC Hgb 13.9 gm/dL (13.7-17.5) 10/15/18 16:30 Hct 39.6 % (40.0-51.0) L 10/15/18 16:24 POC Hct 41 % (40-51) 10/15/18 16:30 MCV 83.0 fL (81.5-99.8) 10/15/18 16:24 MCH 26.0 pg (27.9-34.1) L 10/15/18 16:24 MCHC 31.3 g/dL (32.4-36.7) L 10/15/18 16:24 RDW 14.8 % (11.5-15.2) 10/15/18 16:24 Plt Count 267 10^3/uL (150-400) 10/15/18 16:24 MPV 9.2 fL (8.7-11.7) 10/15/18 16:24 Neut % (Auto) 52.5 % (39.3-74.2) 10/15/18 16:24 Lymph % (Auto) 28.3 % (15.0-45.0) 10/15/18 16:24 [place] % (Auto) 9.7 % (4.5-13.0) 10/15/18 16:24 Eos % (Auto) 8.0 % (0.6-7.6) H 10/15/18 16:24 Baso % (Auto) 1.1 % (0.3-1.7) 10/15/18: Nucleat RBC Rel Count 0.0 % (0.0-0.2) 10/15/18 16:24 Absolute Neuts (auto) 2.87 10^3/uL (1.70-6.50) 10/15/18 16:24 Absolute Lymphs (auto) 1.55 10^3/uL (1.00-3.00) 10/15/18 16:24 Absolute Monos (auto) 0.53 10^3/uL (0.30-0.80) 10/15/18 16:24 Absolute Eos (auto) 0.44 10^3/uL (0.03-0.40) H 10/15/18 16:24 Absolute Basos (auto) 0.06 10^3/uL (0.02-0.10) 10/15/18 16:24 Absolute Nucleated RBC 0.00 10^3/uL (0-0.01) 10/15/18 16: Immature Gran % 0.4 % (0.0-1.1) 10/15/18 16: Immature Gran # 0.02 10^3/uL (0.00-0.10) 10/15/18 16: PT 13.5 SEC (12.0-15.0) 10/15/18 16:24 INR 1.01 (0.83-1.16) 10/15/18 16:24 APTT 30.2 SEC (23.0-38.0) 10/15/18 16:24 POC Sodium 136 mEq/L (135-145) 10/15/18 16:30 Sodium 133 mEq/L (135-145) L 10/15/18 16:24 POC Potassium 3.8 mEq/L (3.3-5.0) 10/15/18 16:30 Potassium 4.1 mEq/L (3.3-5.0) 10/15/18 16:24 POC Chloride 95 mEq/L (97-110) L 10/15/18 16:30 Chloride 95 mEq/L (97-110) L 10/15/18 16:24 Carbon Dioxide 32 mEq/l (22-31) H 10/15/18 16:24 Anion Gap 6 mEq/L (6-14) 10/15/18 16:24 POC BUN 26 mg/dL (7-23) H 10/15/18 16:30 BUN 26 mg/dL (7-23) H 10/15/18 16:24 Creatinine 0.9 mg/dL (0.7-1.3) 10/15/18 16:24 POC Creatinine 1.0 mg/dL (0.7-1.3) 10/15/18 16:30 Estimated GFR > 60 10/15/18 16:24 Glucose 107 mg/dL (70-100) H 10/15/18 16:24 POC Glucose 106 mg/dL (70-100) H 10/15/18 16:30 Calcium 9.0 mg/dL (8.5-10.4) 10/15/18 16:24 Total Bilirubin 0.3 mg/dL (0.1-1.4) 10/15/18 16:24 Conjugated Bilirubin 0.2 mg/dL (0.0-0.5) 10/15/18 16:24 Unconjugated Bilirubin 0.1 mg/dL (0.0-1.1) 10/15/18 16:24 AST 18 IU/L (17-59) 10/15/18 16:24 ALT 22 IU/L (21-72) 10/15/18 16:24 Alkaline Phosphatase 99 IU/L (38-126) 10/15/18 16:24 Total Protein 6.7 g/dL (6.3-8.2) 10/15/18 16:24 Albumin 3.7 g/dL (3.5-5.0) 10/15/18 16:24 Lipase 111 IU/L (23-300) 10/15/18 16:24 Patient ABO/Rh B POSITIVE 10/15/18 16:24 Antibody Screen NEGATIVE 10/15/18 16:24 Crossmatch IS Only See Detail 10/15/18 16:24 Assessment & Plan Plan: 68 y/o male with possible UGIB but also possible angina. The origin of the blood is unknown as the pt was sleeping and awoke covered in blood. A few days prior, he blew his nose and noticed blood on the tissue. He denies tasting blood in his mouth when he awoke, nor did he taste blood currently. Although his esophageal dilation procedure alleviated much of the pressure and swallowing difficulties in the epigastric area, he continues to experience some difficulty. He also notices pressure with exertion. 1. Suspected UGIB: Dr. Holt consulted and aware of case; he will trend the pt' s H/H for now, no EGD for the time being as the pt is hemodynamically stable. Current H/H 12.4/39.6. CBC, BMP for tomorrow. IV Pantoprazole. Continue to monitor. Tobacco cessation. 2. Epigastric pressure/dysphagia: The pt does have a cardiac history and is at higher risk for complications d/t his age, gender, social lifestyle (vapes tobacco, drinks alcohol daily, BMI 25). Lipid panel tomorrow. Cycle trops. EKG. Consider stress test once baseline tests result. Tobacco cessation. 3. GERD: see suspected UGIB Diet: Cardiac VTE ppx: SCDs Code: Full Dispo: Admit to obs
[2018-10-15] MEDS ORDERED: POTASSIUM CL 10 MEQ TAB PO PRN (18:19)
[2018-10-15] MEDS ORDERED: ALPRAZolam 0.5 MG TAB PO PRN (18:19)
[2018-10-15] MEDS ORDERED: HYDROmorphONE/DILAUDID 4 MG TAB PO PRN (18:19)
[2018-10-15] MEDS ORDERED: MBX SOLN 30 ML BOTTLE PO PRN (18:46)
--- NOTE | 2018-10-15 18:58 | HOSPPROG ---
Hospitalist Progress Note Assessment/Plan: ADDENDUM TO H&P FOR HOSPITALIST SERVICE ON ADMISSION DAY Saw this patient along with berta Richardson nurse practitioner today. The patient comes into the ER because he woke up with blood on his chin neck and chest this morning. As he looks back he can't really tell without blood came from. He does recall that when he blew his nose a couple days ago there was some blood that he blew out along with some clear fluid. He does not have nose pain or injury, does not have any nausea or vomiting. He original came to the ER of concerned that he was having an upper GI bleed in in fact he has in the past had bleeding from erosive esophagitis. He has recently been taking proton pump inhibitors, which she takes chronically. Notably because he was having solid foods only dysphagia around a month ago he had an EGD which showed a stricture any had dilation for that. In addition to the stricture there is also he thinks some type of benign mass lesion as he was told he was told this did need any other care. He does not know any other details about that. Asking about a other symptoms he says that since he had his dilation his solid foods dysphagia has resolved, and it is helpful also that he has dentures now. In addition the patient does tell me though that he has been having some chest discomfort recently. He attributed this to esophageal disease and says that it is sometimes aggravated by swallowing any acid food or liquids. However he describes the discomfort as a pressure in the substernal area and says that at times it is aggravated by walking or going up stairs. Is not associated necessarily with dyspnea or diaphoresis or nausea. In reviewing the patient's medical records in 2016 he had coronary angiography showing mild coronary disease in multiple vessels. He is not smoking cigarettes but does use tobacco vapor device. He drinks alcohol 5-10 drinks per week. He does have some type of valvular heart disease as well. In 2017 and echocardiogram here showed moderate aortic regurgitation, with a question of bicuspid valve. On examination here tonight he is mildly hypertensive with stable pulse and respirations and he looks relaxed lying on [facility]. Skin is warm dry respirations are not labored heart exam discloses his diastolic murmur as well as systolic murmur. Has pulses in the 80s and regular right now. He does not have any edema in his abdominal exam was benign for me. Laboratory dated [facility] show hemoglobin 12.4 with normocytic indices. Notably in comparison he was here in January of 2017 with upper GI bleeding at that time he was microcytic with a hemoglobin of 6. I have no lab data in between January 2017 and now for comparison My concerns are that this patient had a bleeding episode that may have been a nose bleed or may have been a GI bleed but there is nothing that clarifies that force at the moment. As he comes in with stable blood counts pulse and blood pressure will watch him here overnight with his blood counts repeated in vital signs and will keep him on proton pump inhibitors. In addition I am concerned about his exertional chest pressure in this patient who has known coronary disease and not very good tendencies to take care of himself. DIAGNOSES: * bleeding either from nose or upper GI tract, I suspect probably nose but will need to follow closely * recent esophageal dilation for stricture about a month ago with good resolution of his solid foods dysphagia * chest pressure in the substernal region that has both exertion and swallowing certain foods as aggravating factors, with coronary risk factors including male sex, age, tobacco use and known diffuse mild coronary disease seen on angiography in 2016 PLANS: * OBSERVATION STATUS ADMISSION * FOLLOW BLOOD COUNTS AND VITAL SIGNS CLOSELY * CONTINUE PROTON PUMP INHIBITORS * DR. ORTEGA HAS BEEN NOTIFIED AND WILL FOLLOW THE PATIENT * CHECK EKG AND TROPONIN NOW, REPEAT TROPONINS OVERNIGHT * DEPENDING ON WHAT IS SEEN PLAN ON MOST LIKELY GETTING A TREADMILL STRESS TEST TOMORROW BUT NEED TO SEE THE INITIAL DATA 1ST FOR AND MAKE DECISIONS AFTER THAT * RECOMMEND TOBACCO CESSATION Objective: Vital Signs Temp Pulse Resp BP Pulse Ox 36.5 C 84 16 130/82 H 94 10/15/18 15:20 10/15/18 17:42 10/15/18 17:42 10/15/18 17:42 10/15/18 17:42 10/14/18 10/15/18 10/16/18 06:59 06:59 06:59 Intake Total 1000 Balance 1000 PT 13.5 SEC (12.0-15.0) 10/15/18 16:24 INR 1.01 (0.83-1.16) 10/15/18 16:24 ICD10 Worksheet Patient Problems: Problems Problem Status Onset Upper GI bleed Acute Anemia Acute Injury of femoral artery Acute
--- NOTE | 2018-10-15 19:16 | SOAPPROG ---
TIFF Progress Note Assessment/Plan: Assessment:Plan: see full dictated consult to follow 68 y/o make with know reflux esophagitis just had EGD in 08/2018 had mild hematemesis with stable Hb/HCT - likely from his reflux if stable then no EGD ppi bis - he didn't know to take 30-60 minutes before breakfast and dinner he also east right at bedtime so likely has sig nighttime acid reflux needs to wait 2-3 hours after solid food intake and I will have him take QHS ranitidine 300mg for approx 2 months Scotty Holt MD 10/15/18 19:14 Objective: Vital Signs Temp Pulse Resp BP Pulse Ox 36.3 C 85 10 L 137/72 H 93 10/15/18 18:49 10/15/18 18:49 10/15/18 18:49 10/15/18 18:49 10/15/18 18:49 10/14/18 10/15/18 10/16/18 05:59 05:59 05:59 Intake Total 1000 Balance 1000 PT 13.5 SEC (12.0-15.0) 10/15/18 16:24 INR 1.01 (0.83-1.16) 10/15/18 16:24 ICD10 Worksheet Patient Problems: Problems Problem Status Onset Upper GI bleed Acute Anemia Acute Injury of femoral artery Acute
[2018-10-15] MEDS ORDERED: RANITIDINE HCL 150 MG/10 ML UDCUP PO SCH (21:00)
--- NOTE | 2018-10-16 03:14 | GCON ---
DATE OF CONSULTATION: 10/15/2018 REQUESTING PHYSICIAN: Shanon Richardson NP. INDICATION FOR CONSULTATION: Mild hematemesis. HISTORY OF PRESENT ILLNESS: I have been asked by Shanon Richardson to see Charlie in consultation for mild hematemesis. He is a patient who is known to our practice from outpatient and on a previous inpatient evaluation. He recently had an EGD by my partner, Dr. Burk on August 29, which showed grade B reflux esophagitis and is reviewed below. The patient had been requested to take omeprazole 40 mg twice daily. This was decreased to daily, but he felt twice daily had better results, so he was increased back up to twice daily earlier this month. He does not take the medication in regard to meals. He just says he takes it q.12 hours, which occasionally does happen before a meal. The proton pump inhibitor should be taken half an hour to an hour before meals. He also admits to eating right before he goes to bed, which will set him up for significant nighttime reflux, which can do more acid damage secondary to the length of exposure. I suspect this is what occurred and then he woke up and had a very small amount of hematemesis. His hemoglobin and hematocrit have been stable. His BUN and creatinine are not significantly elevated. There has been no melena, and I suspect this is a very self-limited upper GI bleed. He certainly does not understand some of the anti-reflux lifestyle changes, nor the timing of the medication, so I have tried to explain that to him. In addition, he feels fatigued, which is likely related to the nighttime acid reflux as well as some of his sleep apnea, and this may be improved with dietary changes as well as using ranitidine 300 mg p.o. at bedtime. Charlie is currently sitting on his bed, feeling well. Dinner is being served and he is hungry. He has no dysphagia, odynophagia, early satiety. Denies any constipation, hematochezia, hematuria. His weight has been stable. He does have a personal history of colon polyps. His last colonoscopy in 2016 did not reveal any polyps, so he should be scheduled again in 2021. I am now here to help evaluate and treat his mild upper GI bleed. PAST MEDICAL HISTORY: Reflux esophagitis, hypothyroidism, scoliosis, obstructive sleep apnea, chronic opioid use. PAST SURGICAL HISTORY: Includes right shoulder arthroscopy, tonsillectomy, adenoidectomy, EGDs and colonoscopies. MEDICATIONS AT HOME: Include vitamin C 250 mg daily, Adderall 330 mg tablets daily, methadone 20 mg daily, potassium chloride 10 mEq p.r.n., oxycodone IR p.r.n., Adderall 20 mg daily, so I guess he is on 2 doses, Lasix 80 mg, which is 40 mg twice daily, alprazolam 0.5 mg p.o. three times daily p.r.n., aspirin 325 mg daily, Dilaudid 4 mg p.r.n., omeprazole 40 mg p.o. twice daily, Benadryl 25 mg p.o. at bedtime p.r.n. ALLERGIES: One of the old medications he does not use anymore, Tolectin allergy. He says he also reacts to gluten. FAMILY HISTORY: His brother had colon polyps. No one else in the family had colon cancer or colon polyps. SOCIAL HISTORY: He smokes tobacco from a vape pen. He drinks alcohol 1-2 drinks a day. He lives with a roommate. REVIEW OF SYSTEMS: A complete review of systems was performed and is negative other than noted in the HPI. PHYSICAL EXAM: Well-developed, well-nourished, elderly male, sitting on his bed , in no acute distress. Blood pressure 137/72, pulse 85, respirations are 12, temperature 36.3. EYES: Anicteric. ROBYN, EOMI. MOUTH: No lesions. Moist membranes. NECK: Supple. Full range of motion. No JVD. BACK: No spine tenderness. No CVA tenderness. LUNGS: Clear to auscultation. CARDIAC: S1, S2. Regular rate and rhythm. I do not appreciate any murmurs, rubs, or gallops. ABDOMEN: Bowel sounds are normal pitch and frequency. Abdomen is soft with minimal epigastric discomfort on deep palpation. No hepatosplenomegaly. EXTREMITIES: No cyanosis, trace edema. NEUROLOGIC: Cranial nerves intact. Nonfocal. SKIN: No stigmata of advanced liver disease. LABORATORY DATA: From today, WBC 5.47, hemoglobin 12.4, hematocrit 39.6, platelet count 267, that was at 4:24. The repeat medially was 13.9. ProTime 13.5, INR 1.01, PTT 30.2. Sodium 136, potassium 3.8, chloride 95, bicarb 32, BUN 26, creatinine 0.6. Calcium 9.0, total bilirubin 0.3, AST 18, ALT 22, alkaline phosphatase 99, albumin 3.7, total protein 6.7, lipase 111. Hemoglobin dating back to approximately January 2016 was 12.1. Hepatitis C viral load on January 15, 2017, was undetectable. EGD performed August 29, 2018, as an outpatient revealed mucosal nodule in middle third of the esophagus, status post biopsy. LA grade B reflux esophagitis in the distal third of the esophagus. Small hiatal hernia. Normal stomach. Normal duodenum. Pathology of the GE junction showed severe reflux- type changes. No evidence of Mcgovern's. 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 EGD and colonoscopy performed at [facility] back in January 2017, when he presented with significant anemia. EGD showed moderate severe reflux esophagitis with normal stomach and duodenum, and the colonoscopy was normal. He did have an outpatient colonoscopy and EGD back on April 06, 2009. The colonoscopy showed a 6 mm transverse colon polyp, otherwise was normal, and the EGD revealed mild, subtle, distal esophageal changes consistent with reflux. Normal stomach. Normal duodenum. Pathology of the polyp was a tubular adenoma. Biopsies of the duodenum were normal duodenum. No pathologic features. ASSESSMENT: 1. Mild hematemesis, likely related to acid reflux. 2. Grade B reflux esophagitis on previous endoscopies. 3. History of colon polyps. Last colonoscopy 2016. 4. Sleep apnea. 5. Hypertension. 6. Scoliosis. 7. Hypothyroidism. RECOMMENDATIONS: 1. Continue PPI twice daily, but use half an hour to an hour before breakfast and dinner. 2. Add bedtime ranitidine 300 mg for at least the next month or 2. 3. Strict anti-reflux lifestyle changes with not eating any solid food within 2 -3 hours of lying down. 4. N.p.o. after midnight to see if there is any significant decrease in the hemoglobin and hematocrit that would require EGD. If the hemoglobin and hematocrit are essentially stable, then I would not recommend EGD, given his recent EGD in August. 5. Treatment of other medical issues as per hospitalist. 6. Colonoscopy in 2021 for followup of his adenomatous polyp. 7. Further recommendations to follow results above and clinical course. Thank you for allowing me to participate in the patient's healthcare. Do not hesitate to call me with any questions. Copy requested to: Maxwell Tobar MD /[id number]/MODL MTDD
--- NOTE | 2018-10-16 06:27 | CPEKG ---
Test Reason : OPEN Blood Pressure : / mmHG Vent. Rate : 089 BPM Atrial Rate : 089 BPM P-R Int : 140 ms QRS Dur : 098 ms QT Int : 405 ms P-R-T Axes : 041 043 030 degrees QTc Int : 493 ms Sinus rhythm Borderline prolonged QT interval Confirmed by Leilani Estrada ([id number]) on 10/16/2018 6:26:52 AM Referred By: Confirmed By:Leilani Estrada
[2018-10-16] MEDS: PANTOPRAZOLE SODIUM 40 MG VIAL IVP SCH ×2 (08:23→08:33)
[2018-10-16] MEDS ORDERED: Ferrous Gluconate [Ferrous Gluconate] 324 MG PO SCH (09:00)
[2018-10-16] MEDS ORDERED: METHADONE HCL 10 MG TAB PO SCH (09:00)
[2018-10-16] MEDS ORDERED: PANTOPRAZOLE SODIUM 40 MG VIAL IVP SCH (09:00)
[2018-10-16] MEDS ORDERED: FUROSEMIDE 40 MG TAB PO PRN (09:00)
[2018-10-16] MEDS ORDERED: Dextroamphetamine/Amphetamine [Adderall Xr 30 Mg Capsule] 30 MG PO SCH (09:00)
[2018-10-16] MEDS ORDERED: ASCORBIC ACID 250 MG TAB PO SCH (09:00)
[2018-10-16] MEDS ORDERED: FERROUS SULFATE 325 MG TAB PO SCH (09:00)
[2018-10-16] MEDS ORDERED: REGADENOSON 0.4 MG/5 ML SYR IVP ONE (11:54)
[2018-10-16] MEDS ORDERED: ADDERALL 20 MG TAB PO SCH (12:00)
--- NOTE | 2018-10-16 12:41 | CPR ---
PROCEDURE: Lexiscan nuclear stress test REASON FOR TEST: Chest discomfort. Resting EKG shows a sinus rhythm with a QTcB of 535, QTcF 506, which is prolonged, possibly atrial en largement. T-wave inversion in V1, V2. Resting blood pressure 124/84, heart rate 83, oxygen saturat ion 98%. He is asymptomatic prior to test. STRESS PORTION: Lexiscan was injected rapidly, followed by saline flush. Cardiolite was then inject ed, followed by saline flush. He did feel flushed and some muscle discomfort. Peak blood pressure 1 34/76, peak heart rate 100, oxygen saturation 98%. During recovery, he did get nauseated and did hav e an emesis. His heart rhythm remained stable. Resting EKG shows a sinus tach at 100. Blood pressur e 126/80, oxygen saturation 98%, elevated heart rate likely related to his nausea and retching. At c ompletion of test, he was feeling better. EKG remained stable. Final blood pressure 126/80, oxygen saturation 98%. At this time, he currently is stable for nuclear imaging. /[id number]/MODL
[2018-10-16] MEDS ORDERED: LR 1,000 ML IV ONE (13:44)
--- NOTE | 2018-10-16 14:09 | PDANEPAE ---
ANE History of Present Illness 68 yo with n.v and upper gi bleeding ANE Past Medical History - Cardiovascular History Hx Hypertension: Yes Hx Arrhythmias: No Hx Chest Pain: No Hx Coronary Artery / Peripheral Vascular Disease: Yes Hx CHF / Valvular Disease: No Hx Palpitations: No Cardiovascular History Comment: [employer] 02/17/16 - Pulmonary History Hx COPD: No Hx Asthma/Reactive Airway Disease: No Hx Recent Upper Respiratory Infection: No Hx Oxygen in Use at Home: Yes O2 in Use at Home (L/minute): 3 Hx Sleep Apnea: Yes Pulmonary History Comment: moira positive. hx of pulm htn - Neurologic History Hx Cerebrovascular Accident: No Hx Seizures: No Hx Dementia: No Neurologic History Comment: scoliosis - Endocrine History Hx Diabetes: No Hypothyroid: Yes Hyperthyroid: No Obesity: no Endocrine History Comment: hypothyroidism - Renal History Hx Renal Disorders: No - Liver History Hx Hepatic Disorders: No - Neurological & Psychiatric Hx Hx Neurological and Psychiatric Disorders: Yes Neurological / Psychiatric History Comment: depression - Cancer History Hx Cancer: No Cancer History Comment: hx of skin ca - Congenital Disorder History Hx Congenital Disorders: No - GI History GERD: moderate Hx Gastrointestinal Disorders: Yes Gastrointestinal History Comment: reflux. hiatal hernia - Other Health History Other Health History: arthritis. eczema on nose and arm - Chronic Pain History Chronic Pain: Yes (arthritis, shoulder pain) - Surgical History Prior Surgeries: cardiac cath 02/17/16. dental surgeries. femoral artery repair 01/2016 ANE Review of Systems Review of systems is: negative Review of Systems: - Exercise capacity Exercise capacity: <4 METS ANE Patient History - Allergies Allergies/Adverse Reactions: gluten Allergy (Verified 10/15/18 17:44) Other-Enter Comments tolmetin sodium [From Tolectin] Allergy (Verified 10/15/18 17:44) Other-Enter Comments - Home Medications Home medications: home medication list seen and reviewed Home Medications: Ascorbic Acid [Vitamin C 250 mg (*)] 250 mg PO DAILY 02/18/16 [Last Taken ] Dextroamphetamine/Amphetamine [Adderall Xr 30 mg Capsule] 30 mg PO DAILY [Last Taken 10/15/18] Methadone HCl [Methadone HCl 10 mg (*)] 20 mg PO DAILY 02/18/16 [Last Taken ] Potassium Cl [Klor-Con 10 meq (RX)] 10 meq PO DAILY PRN 02/18/16 [Last Taken ] oxyCODONE IR [Oxycodone Ir (*)] 30 mg PO Q4 PRN 02/18/16 [Last Taken 10/15/18 AM ] Amphet Asp and D/Amphet [Adderall 20 mg (*)] 20 mg PO DAILY@12 01/26/17 [Last Taken 10/15/18] Furosemide [Lasix 80 MG (*)] 40 mg PO BID PRN 01/26/17 [Last Taken 10/08/18] ALPRAZolam [Xanax 0.5 MG (*)] 0.5 - 1 mg PO TID PRN 10/15/18 [Last Taken AM] Aspirin [Aspirin 325 mg (*)] 975 mg PO Q3D 10/15/18 [Last Taken Unknown] HYDROmorphone HCL [Dilaudid 4 mg (*)] 4 mg PO TID PRN 10/15/18 [Last Taken 10/15 AM] Mbx Soln;Maalox/Diphen/Lido [Maalox/Diphenhydramine/Lido] 5 ml PO PRN PRN [Last Taken Unknown] Omeprazole 40 mg PO BID 10/15/18 [Last Taken 10/15/18 AM] diphenhydrAMINE HCL [Sleep-Aid] 25 mg PO HS PRN 10/15/18 [Last Taken Unknown] - NPO status NPO Status: no food or drink >8 hours (sip of pepsi 2 hours ago) - Smoking Hx Smoking Status: Current some day smoker (Vape tobacco) - Alcohol Use Alcohol Use: Occasionally (2 drinks/day) - Family Anes Hx Family Hx Anesthesia Complications: none ANE Labs/Vital Signs - Labs Result Diagrams: 10/16/18 05:58 10/16/18 05:58 - Vital Signs Blood Pressure: 179/105 Heart Rate: 99 Respiratory Rate: 12 O2 Sat (%): 93 Height: 162.56 cm Weight: 68.039 kg ANE Physical Exam - Airway Neck exam: FROM Mallampati Score: Class 2 Mouth exam: normal dental/mouth exam - Pulmonary Pulmonary: no respiratory distress, clear to auscultation - Cardiovascular Cardiovascular: regular rate and rhythym, no murmur, rub, or gallop - ASA Status ASA Status: III ANE Anesthesia Plan Anesthesia Plan: GA with mask Total IV Anesthesia: Yes
[2018-10-16] MEDS ORDERED: PROPOFOL 200 MG/20 ML VIAL ONE (14:10)
--- NOTE | 2018-10-16 14:12 | ASMTCMCOM ---
CM Note CM Note Notes: Pts case discussed in tx rounds. Pt is a 68 y/o man admitted for an upper gi bleed. Pt will most likely d/c independent when medically stable. No therapies ordered at this time. CM available for changes. Plan: Independent Date Signed: 10/16/2018 02:11 PM Electronically Signed By:AUBREY Serrano
[2018-10-16] MEDS ORDERED: NALOXONE HCL 0.4 MG/ML INJ IVP PRN (14:13)
--- NOTE | 2018-10-16 14:35 | POSTANESTH ---
Post Anesthetic Evaluation Cardiovascular Status: Normal, Stable Respiratory Status: Normal, Stable Level of Consciousness/Mental Status: Can Participate in Eval Pain Control: Adequate, Prn Tx Ordered Nausea/Vomiting Control: Adequate, Prn Tx Ordered Complications Possibly Related to Anesthesia: None Noted
--- NOTE | 2018-10-16 14:49 | GIREPORT ---
[facility] - Endoscopy Department Patient Name: Charlie Anderson Procedure Date: 10/16/2018 2:10 PM Patient Type: Inpatient Attending MD/ ER Physician: Joann Zhao Procedure: Upper GI endoscopy Indications: Acute post hemorrhagic anemia, Hematemesis Providers: Scotty Holt MD Referring MD: Chitra Tobar MD Medicines: Propofol per Anesthesia + IV general with spont respirations Complications: No immediate complications. Estimated blood loss: Minimal. Description of Procedure: After obtaining informed consent, the endoscope was passed under direct vision. Throughout the procedure, the patient's blood pressure, pulse, and oxygen saturations were monitored continuously. The Endoscope was intro duced through the mouth, and advanced to the third part of duodenum. The uppe r GI endoscopy was accomplished without difficulty. The patient tolerated th e procedure well. Moderate Sedation: Moderate (conscious) sedation was personally administered by an anesthe robb professional. The following parameters were monitored: oxygen saturatio n, heart rate, blood pressure, and response to care. Findings: Areas of ectopic gastric mucosa were found in the upper third of the esophagus. LA Grade B (one or more mucosal breaks greater than 5 mm, not extending between the tops of two mucosal folds) esophagitis with no bleeding was found in the lower third of the esophagus. A large hiatal hernia was present. The examined duodenum was normal. The exam was otherwise without abnormality. Estimated Blood Loss: Estimated blood loss was minimal. Post Op Diagnosis: - Ectopic gastric mucosa in the upper third of the esophagus. - LA Grade B reflux esophagitis. Actually improved from EGD from 2017 - Large hiatal hernia. - Normal examined duodenum. - The examination was otherwise normal. - No specimens collected. Recommendation: - Follow an antireflux regimen. Do not eat for 2-3 hours prior to lying down. - Use Prilosec (omeprazole) 40 mg PO BID. After 8 weeks try decreasing to once daily. Take 30-60 minutes before breakfast and dinner - Use Zantac (ranitidine) 300 mg PO at bedtime. - Resume previous diet. - [facility] patient to [facility] for possible [facility] same day. - Return to GI clinic in 6 weeks. - Return to primary care physician as previously scheduled. - Thank you for allowing me to help in your patient's care. Do not hesi noble to call with any questions. Attending Participation: I personally performed the entire procedure. Yanet Holder M.D Gallo Holt MD 10/16/2018 2:48:50 PM This report has been signed electronicallyMathew MD Yanet Number of Addenda: 0 Note Initiated On: 10/16/2018 2:10 PM [email or web address]
--- NOTE | 2018-10-16 15:05 | PDDCSUM ---
Discharge Summary Discharge Summary: 68 yo male admitted with hematemesis and concern for UGIB. He was evaluated by GI who performed an endoscopy with no active source of bleeding identified. Please see their report. It was c/w Esophagitis and Hiatal Hernia. Hgb and vital signs were stable. He also c/o of dyspnea and he had an unremarkable w/u including a negative Nita scan Reccs at this time is to cont PPI BID but not to take the PPI until one hour before meals. Also GI reviewed dietary tips to prevent GERD and Esophagitis. He has been started on Ranitidine. He will f/u with his PCP in 1-2 weeks and with GI in 4-6 weeks. DISCHARGE DIAGNOSES: #Esophagitis #UGIB #dyspnea with chest pain #HTN #ILANA Exam: NAD AAOX3 RRR CTA B S/NT/ND NO LE EDEMA MEDS: SEE MED REC F/U: PER ABOVE TOTAL TIME SPENT ON D/C IS 35 MINS
[2018-10-16 15:26] VITALS: BP 127/77
--- NOTE | 2018-10-16 15:56 | PDHOMEO2F ---
Home Oxygen Face to Face Home Orders: I certify that a physician or a nurse practitioner or physician's appeals assistant has had a nogg-bw-otiv encounter with this patient on the date of this order due to the diagnosis listed, which relates to the primary reason the patient requires home oxygen. Alternative treatments have been tried, or considered, and deemed ineffective. It is anticipated that supplemental oxygen will result in improvement with treatment. Home oxygen qualifying diagnosis: pulmonary hypertension, diastolic chf, hypoxemia, ILANA SpO2 on room air (%): 81 Frequency of home oxygen needed: continuous Home oxygen liters per minute: 2 Home oxygen delivery device: nasal cannula Concentrator: Yes E-tanks for mobility and back up: Yes If ordering portable O2, is the patient mobile in the home?: Yes I certify that, based on these findings, the home oxygen is medically necessary for this patient for the following length of time. Length of time home oxygen needed: 99 years
[2018-10-16] MEDS ORDERED: PANTOPRAZOLE SODIUM 40 MG TAB PO SCH (17:30)
[2018-10-16] MEDS ORDERED: FAMOTIDINE 20 MG TAB PO SCH (21:00)
== END 2018-10-16 17:36 | disposition home or self-care (01) ==
LOC: F2W 18:32
PROVIDERS: ADMIT Internal Medicine; ATTEND Internal Medicine
PROC: 0DJ08ZZ Inspection of Upper Intestinal Tract, Via Natural or Artificial Opening Endoscopic (ICD-10-PCS; principal; 2018-10-15)
DX: K92.0 Hematemesis (principal); K21.0 Gastro-esophageal reflux disease with esophagitis; K44.9 Diaphragmatic hernia without obstruction or gangrene; R07.89 Other chest pain; R06.09 Other forms of dyspnea; I11.0 Hypertensive heart disease with heart failure; I50.32 Chronic diastolic (congestive) heart failure; G47.33 Obstructive sleep apnea (adult) (pediatric); J44.9 Chronic obstructive pulmonary disease, unspecified; I25.10 Atherosclerotic heart disease of native coronary artery without angina pectoris; I27.20 Pulmonary hypertension, unspecified; E03.9 Hypothyroidism, unspecified; D64.9 Anemia, unspecified; F17.290 Nicotine dependence, other tobacco product, uncomplicated; Z79.891 Long term (current) use of opiate analgesic; Z86.19 Personal history of other infectious and parasitic diseases; Z86.010 Personal history of colon polyps
CPT/HCPCS: 43235; 78452; 93005; 93017; 96361; 96365; 96366; 96375; 96376; 99285; A9500; G0378; J2405; J2704; J2785; 82435-PO; 82565-PO; 82947-PO; 84132-PO; 84295-PO; 84520-PO; 85014-PO

== ENCOUNTER → 2019-01-09 | Outpatient (CLI) | payer OTHER, MEDICAID | LOC: FIMAGING 11:38 | PROVIDERS: ATTEND Physician Assistant | DX: K82.4 Cholesterolosis of gallbladder (principal) ==

== ENCOUNTER 2019-01-21 17:16 | Emergency (ER) | payer OTHER, MEDICAID ==
--- NOTE | 2019-01-21 18:21 | EDPHY ---
H & P Stated Complaint: gi bleed/anemia hypoxia Time Seen by Provider: 01/21/19 17:43 HPI/ROS: CHIEF COMPLAINT: Vomiting, generalized weakness HISTORY OF PRESENT ILLNESS: 68-year-old male with chronic lung disease, on 3 L by nasal cannula presents with vomiting and generalized weakness. 2 weeks ago he had several episodes of dark stools. He saw his physician and found that he was anemic. The dark stools have resolved. Yesterday he had 3 episodes vomiting dark fluid, no red blood. No nausea today. No abdominal pain. Associated with increasing generalized weakness over the last 2 weeks. Bilateral lower extremity swelling, Lasix without relief. No chest pain. REVIEW OF SYSTEMS: complete 10 point ROS reviewed and is negative except for the noted elements in the HPI - Personal History Current Tetanus Diphtheria and Acellular Pertussis (TDAP): Yes - Medical/Surgical History Hx Asthma: No Hx Chronic Respiratory Disease: No Hx Diabetes: No Hx Cardiac Disease: No Hx Renal Disease: No Hx Cirrhosis: No Hx Alcoholism: No Hx HIV/AIDS: No Hx Splenectomy or Spleen Trauma: No Other PMH: arthritis, depression, scoliosis, pulm hypertension, non- flow limiting mild CAD, Hx hep c (- last 5-6 years after interferon), reflux, hiatal hernia, sleep apnea, COPD, r SHOULDER REPLACEMENT (MAY 2016) - Social History Smoking Status: Current some day smoker Alcohol Use: Sober Drug Use: None - Physical Exam Exam: General Appearance: Alert, pleasant Eyes: Pupils equal and round, conjunctival pallor ENT, Mouth: Mucous membranes slightly dry Neck: Normal inspection Respiratory: Rales at the bases Cardiovascular: Regular tachycardia Gastrointestinal: Abdomen is soft and nontender Rectal: Nontender, brown stool present Neurological: A&O, nonfocal exam Skin: Warm and dry Extremities: Bilateral pedal edema, 2+ Psychiatric: Mood and affect normal Constitutional: Initial Vital Signs Temperature (C) 37.3 C 01/21/19 17:28 Heart Rate 118 H 01/21/19 17:28 Respiratory Rate 20 01/21/19 17:28 Blood Pressure 142/72 H 01/21/19 17:28 O2 Sat (%) 72 L 01/21/19 17:28 O2 Delivery Mode Nasal Cannula O2 (L/minute) 4 Allergies/Adverse Reactions: gluten Allergy (Verified 01/21/19 17:23) Other-Enter Comments tolmetin sodium [From Tolectin] Allergy (Verified 01/21/19 17:23) Other-Enter Comments Home Medications: Medication Instructions Recorded Ascorbic Acid [Vitamin C 250 mg 250 mg PO DAILY 02/18/16 (*)] Dextroamphetamine/Amphetamine 30 mg PO DAILY 02/18/16 [Adderall Xr 30 mg Capsule] Potassium Cl [Klor-Con 10 meq (RX)] 10 meq PO DAILY PRN 02/18/16 oxyCODONE IR [Oxycodone Ir (*)] 30 mg PO Q4 PRN 02/18/16 Amphet Asp and D/Amphet [Adderall 20 mg PO DAILY@12 01/26/17 20 mg (*)] Ferrous Gluconate 324 mg PO DAILY #60 tablet 01/27/17 ALPRAZolam [Xanax 0.5 MG (*)] 0.5 - 1 mg PO TID PRN 10/15/18 Mbx Soln;Maalox/Diphen/Lido 5 ml PO PRN PRN 10/15/18 [Maalox/Diphenhydramine/Lido] Omeprazole 40 mg PO BID 10/15/18 diphenhydrAMINE HCL [Sleep-Aid] 25 mg PO HS PRN 10/15/18 Famotidine [Pepcid 20 MG (*)] 40 mg PO HS #30 tab 10/16/18 levOFLOXACIN [levAQUIN (*)] 750 mg PO DAILY #10 tab 01/21/19 morphINE 01/21/19 Medical Decision Making - Diagnostics EKG Interpretation: EKG interpreted by me reveals sinus tachycardia, rate 105, PACs, borderline prolonged QT interval. Interpretation: Abnormal EKG Imaging Results: Imaging Impressions Chest X-Ray 01/21/19 17:44 Impression: Bibasilar and perihilar airspace and reticular opacities, likely representing pneumonia, atelectasis/scarring, or pneumonitis, less likely edema. Imaging: I viewed and interpreted images myself ED Course/Re-evaluation: 1914: labs d/w pt, Hct 35, down from Hct 41 on 01/07/19. Rectal: brown stool, no evidence of GI bleed currently. Suspect GI bleed 2 weeks ago. CXR d/w pt, ? Pneumonia. The patient has had no fever, cough or other respiratory symptoms. Doubt that he has pneumonia today. Oxygen saturation is 94% on his usual 3 L by nasal cannula. Persistent tachycardia discussed with patient, he states that this is normal for him in his usual heart rate is in the 100's. He would greatly prefer to go home. However, I am concerned about him going home because of generalized weakness. He is not having trouble ambulating and does not feel that he is a fall risk. We will discuss again after all the laboratory tests are back. 1945: stool occult blood positive. d/w pt. Protonix 80mg IV and IV NS 500ml given. Encouraged pt to stay in hospital, continues to refuse admission. States he feels better and would like to go home. Reviewed labs/CXR report, will place pt on Levaquin for possible pneumonia. Strongly encouraged pt to f/ u 1 day for recheck with PCP. Warning signs discussed. Differential Diagnosis: Includes does not limited to severe anemia, infectious etiology such as pneumonia or urinary tract infection, hyponatremia, CVA, acute coronary syndrome - Data Points Laboratory Results: Laboratory Results 01/21/19 18:27 01/21/19 18:27 01/21/19 01/21/19 01/21/19 19:46 19:15 19:03 WBC RBC Hgb Hct MCV MCH MCHC RDW Plt Count MPV Neut % (Auto) Lymph % (Auto) [place] % (Auto) Eos % (Auto) Baso % (Auto) Nucleat RBC Rel Count Absolute Neuts (auto) Absolute Lymphs (auto) Absolute Monos (auto) Absolute Eos (auto) Absolute Basos (auto) Absolute Nucleated RBC Immature Gran % Immature Gran # PT INR APTT D-Dimer 0.63 ug/mLFEU H ug/mLFEU (0.00-0.50) Sodium Potassium Chloride Carbon Dioxide Anion Gap BUN Creatinine Estimated GFR Glucose Calcium Total Bilirubin Conjugated Bilirubin Unconjugated Bilirubin AST ALT Alkaline Phosphatase POC Troponin I 0.01 ng/mL ng/mL (0.00-0.08) NT-Pro-B Natriuret Pep Total Protein Albumin Stool Occult Bld Scrn POSITIVE H (NEGATIVE) 01/21/19 01/21/19 01/21/19 18:27 18:27 18:27 WBC RBC Hgb Hct MCV MCH MCHC RDW Plt Count MPV Neut % (Auto) Lymph % (Auto) [place] % (Auto) Eos % (Auto) Baso % (Auto) Nucleat RBC Rel Count Absolute Neuts (auto) Absolute Lymphs (auto) Absolute Monos (auto) Absolute Eos (auto) Absolute Basos (auto) Absolute Nucleated RBC Immature Gran % Immature Gran # PT 15.5 SEC H SEC (12.0-15.0) INR 1.21 H (0.83-1.16) APTT 37.9 SEC SEC (23.0-38.0) D-Dimer Sodium 134 mEq/L L mEq/L (135-145) Potassium 3.7 mEq/L mEq/L (3.5-5.2) Chloride 100 mEq/L mEq/L (97-110) Carbon Dioxide 26 mEq/l mEq/l (22-31) Anion Gap 8 mEq/L mEq/L (6-14) BUN 30 mg/dL H mg/dL (7-23) Creatinine 0.9 mg/dL mg/dL (0.7-1.3) Estimated GFR > 60 Glucose 105 mg/dL H mg/dL (70-100) Calcium 8.2 mg/dL L mg/dL (8.5-10.4) Total Bilirubin 0.7 mg/dL mg/dL (0.1-1.4) Conjugated Bilirubin 0.2 mg/dL mg/dL (0.0-0.5) Unconjugated Bilirubin 0.5 mg/dL mg/dL (0.0-1.1) AST 17 IU/L IU/L (17-59) ALT 16 IU/L L IU/L (21-72) Alkaline Phosphatase 83 IU/L IU/L (38-126) POC Troponin I NT-Pro-B Natriuret Pep 508 pg/mL H pg/mL (0-125) Total Protein 6.5 g/dL g/dL (6.3-8.2) Albumin 3.2 g/dL L g/dL (3.5-5.0) Stool Occult Bld Scrn 01/21/19 18:27 WBC 9.60 10^3/uL H 10^3/uL (3.80-9.50) RBC 4.38 10^6/uL L 10^6/uL (4.40-6.38) Hgb 10.7 g/dL L g/dL (13.7-17.5) Hct 35.2 % L % (40.0-51.0) MCV 80.4 fL L fL (81.5-99.8) MCH 24.4 pg L pg (27.9-34.1) MCHC 30.4 g/dL L g/dL (32.4-36.7) RDW 17.3 % H % (11.5-15.2) Plt Count 270 10^3/uL 10^3/uL (150-400) MPV 9.5 fL fL (8.7-11.7) Neut % (Auto) 82.4 % H % (39.3-74.2) Lymph % (Auto) 11.0 % L % (15.0-45.0) [place] % (Auto) 5.4 % % (4.5-13.0) Eos % (Auto) 0.8 % % (0.6-7.6) Baso % (Auto) 0.2 % L % (0.3-1.7) Nucleat RBC Rel Count 0.0 % % (0.0-0.2) Absolute Neuts (auto) 7.90 10^3/uL H 10^3/uL (1.70-6.50) Absolute Lymphs (auto) 1.06 10^3/uL 10^3/uL (1.00-3.00) Absolute Monos (auto) 0.52 10^3/uL 10^3/uL (0.30-0.80) Absolute Eos (auto) 0.08 10^3/uL 10^3/uL (0.03-0.40) Absolute Basos (auto) 0.02 10^3/uL 10^3/uL (0.02-0.10) Absolute Nucleated RBC 0.00 10^3/uL 10^3/uL (0-0.01) Immature Gran % 0.2 % % (0.0-1.1) Immature Gran # 0.02 10^3/uL 10^3/uL (0.00-0.10) PT INR APTT D-Dimer Sodium Potassium Chloride Carbon Dioxide Anion Gap BUN Creatinine Estimated GFR Glucose Calcium Total Bilirubin Conjugated Bilirubin Unconjugated Bilirubin AST ALT Alkaline Phosphatase POC Troponin I NT-Pro-B Natriuret Pep Total Protein Albumin Stool Occult Bld Scrn Medications Given: Discontinued Medications Sodium Chloride (Ns) 500 mls @ 1,000 mls/hr IV EDNOW ONE PRN Reason: Protocol Stop: 01/21/19 20:14 Last Admin: 01/21/19 19:46 Dose: 500 mls Pantoprazole Sodium (Protonix) 80 mg IVP EDNOW ONE Stop: 01/21/19 19:31 Last Admin: 01/21/19 19:38 Dose: 80 mg Point of Care Test Results: Chemistry 01/21/19 19:46 POC Troponin I 0.01 ng/mL ng/mL (0.00-0.08) Departure - Departure Disposition: Home, Routine, Self-Care Clinical Impression: Generalized weakness Anemia Qualifiers: Anemia type: other cause Other causes of anemia: other cause, not classified Qualified Code(s): D64.89 - Other specified anemias Condition: Fair Instructions: Weakness (ED), Anemia (ED) Additional Instructions: You are mildly anemic today. I think you had GI bleeding, which caused you to be anemic. If you develop recurrent black or bloody stools or emesis, please return to the emergency department. Your chest x-ray shows that you may have pneumonia. Given severe lungs are compromised because of COPD and you require oxygen around the clock, I think that it is prudent to start you on a course of antibiotics. Return to the emergency department with any concerns. Referrals: CHUN JOSHI [Primary Care Provider] - 1 day without fail Prescriptions: levOFLOXACIN [levAQUIN (*)] 750 mg PO DAILY #10 tab
[2019-01-21 18:54] LABS: PLATELET COUNT 270 10^3/uL (150-400)
[2019-01-21 19:00] LABS: INR 1.21 (0.83-1.16); PROTIME(PATIENT) 15.5 SEC (12.0-15.0)
[2019-01-21] MEDS ORDERED: PANTOPRAZOLE SODIUM 40 MG VIAL IVP ONE (19:30)
[2019-01-21] MEDS ORDERED: NS 500 ML IV ONE (19:45)
[2019-01-21 21:05] VITALS: BP 117/69
--- NOTE | 2019-01-21 22:39 | CPEKG ---
Test Reason : OPEN Blood Pressure : / mmHG Vent. Rate : 105 BPM Atrial Rate : 106 BPM P-R Int : 156 ms QRS Dur : 097 ms QT Int : 375 ms P-R-T Axes : 034 030 019 degrees QTc Int : 496 ms Sinus tachycardia Atrial premature complexes Borderline prolonged QT interval Confirmed by Elma Umaña ([id number]) on 01/21/2019 10:39:07 PM Referred By: ELMA UMAÑA Confirmed By:Elma Umaña
== END 2019-01-21 21:04 | disposition home or self-care (01) ==
DX: R11.2 Nausea with vomiting, unspecified (principal); R53.1 Weakness; D64.89 Other specified anemias; E86.9 Volume depletion, unspecified; J44.9 Chronic obstructive pulmonary disease, unspecified; I27.20 Pulmonary hypertension, unspecified
CPT/HCPCS: 84484-ER; 96374

== ENCOUNTER 2019-05-07 09:27 | Day surgery (SDC) | payer OTHER, MEDICAID | END 2019-05-07 12:25 | disposition home or self-care (01) | LOC: FSGY 09:27 ==